=== PATIENT | female | born 1975 | race American Indian/Alaskan Native ===

== ENCOUNTER 2016-09-14 17:40 | Emergency (ER) | payer BC ==
[2016-09-14] MEDS ORDERED: MOTRIN PO ONE (21:43)
[2016-09-14 22:16] LABS: Hematocrit 40.4 % (30.3-42.9); Hemoglobin 13.2 gm/dl (10.1-14.3); Mean Corpuscular HGB Conc 33 % (30-34); Mean Corpuscular Hemoglobin 29 pg (28-32); Mean Corpuscular Volume 89 fl (79-97); Platelet Count 264 K/mm3 (140-440); Red Blood Count 4.53 M/mm3 (3.65-5.03); Red Cell Distribution Width 14.2 % (13.2-15.2); White Blood Count 10.8 K/mm3 (4.5-11.0)
--- NOTE | 2016-09-14 22:19 | Emergency Department Report ---
ED Extremity Problem HPI - General Chief complaint: Extremity Injury, Lower Stated complaint: MUSCLE CRAMP Time Seen by Provider: 09/14/16 21:20 Source: patient Mode of arrival: Ambulatory Limitations: No Limitations - History of Present Illness Initial comments: 41-year-old female past medical history smoker presents with complaint of cramps to right calf for approximately 4-5 days. Patient denies any trauma, denies any new exercises denies any rash or lesions on leg. Patient states she feels it in mid calf region, persistent, crampy in nature. Denies any recent travel not on any control history of DVT or PE MD Complaint: extremity pain Onset/Timin -: days(s) Location: right History of Same: No Radiation: proximal Severity scale (0 -10): 8 Quality: aching Consistency: constant - Related Data Home Medications Medication Instructions Recorded Confirmed Last Taken Mirtazapine 30 mg PO DAILY 09/14/16 09/14/16 Unknown Previous Rx's Medication Instructions Recorded Last Taken Type Cyclobenzaprine [Flexeril] 10 mg PO TID PRN #15 tablet 09/14/16 Unknown Rx Naproxen [Naprosyn TAB] 500 mg PO BID PRN #25 tablet 09/14/16 Unknown Rx Allergies Allergy/AdvReac Type Severity Reaction Status Date / Time latex Allergy Rash Verified 09/01/13 13:41 aspirin AdvReac Nausea Verified 09/01/13 13:41 ED Review of Systems ROS: Stated complaint: MUSCLE CRAMP Other details as noted in HPI Constitutional: denies: chills, fever Eyes: denies: eye pain, eye discharge, vision change ENT: denies: ear pain, throat pain Respiratory: denies: cough, shortness of breath, wheezing Cardiovascular: denies: chest pain, palpitations Endocrine: no symptoms reported Gastrointestinal: denies: abdominal pain, nausea, diarrhea Genitourinary: denies: urgency, dysuria, discharge Musculoskeletal: as per HPI. denies: back pain, joint swelling, arthralgia Skin: denies: rash, lesions Neurological: denies: headache, weakness, paresthesias Psychiatric: denies: anxiety, depression Hematological/Lymphatic: denies: easy bleeding, easy bruising ED Past Medical Hx - Past Medical History Previous Medical History?: Yes Hx Headaches / Migraines: Yes Additional medical history: anxiety - Surgical History Additional Surgical History: hysterectomy - Social History Smoking Status: Current Every Day Smoker Substance Use Type: Alcohol, Non Opiate Pain - Medications Home Medications: Home Medications Medication Instructions Recorded Confirmed Last Taken Type Cyclobenzaprine [Flexeril] 10 mg PO TID PRN #15 tablet 09/14/16 Unknown Rx Mirtazapine 30 mg PO DAILY 09/14/16 09/14/16 Unknown History Naproxen [Naprosyn TAB] 500 mg PO BID PRN #25 tablet 09/14/16 Unknown Rx ED Physical Exam - General Limitations: No Limitations General appearance: alert, in no apparent distress - Head Head exam: Present: atraumatic, normocephalic - Eye Eye exam: Present: normal appearance, PERRL, EOMI - ENT ENT exam: Present: mucous membranes moist - Neck Neck exam: Present: normal inspection - Respiratory Respiratory exam: Present: normal lung sounds bilaterally. Absent: respiratory distress - Cardiovascular Cardiovascular Exam: Present: regular rate, normal rhythm. Absent: systolic murmur, diastolic murmur, rubs, gallop - GI/Abdominal GI/Abdominal exam: Present: soft, normal bowel sounds - Extremities Exam Extremities exam: Present: normal inspection, tenderness (mild reproducible tenderness right mid calf region, no visible sweling) - Expanded Lower Extremity Exam Right Hip exam: Present: normal inspection, full ROM Upper Leg exam: Present: normal inspection, full ROM Knee exam: Present: normal inspection, full ROM Lower Leg exam: Present: normal inspection, full ROM, tenderness (minor mid calf tenderness, no swelling, no erythema, achilles tendon intact, limb warm, distal pulses dorsalis pedis and psoteriro tibial pulses intact on palpation, strong.) Ankle exam: Present: normal inspection, full ROM Foot/Toe exam: Present: normal inspection, full ROM Neuro vascular tendon exam: Present: no vascular compromise Gait: Positive: observed and normal - Back Exam Back exam: Present: normal inspection - Neurological Exam Neurological exam: Present: alert, oriented X3 - Psychiatric Psychiatric exam: Present: normal affect, normal mood - Skin Skin exam: Present: warm, dry, intact, normal color. Absent: rash ED Course Vital Signs 09/14/16 09/14/16 18:04 20:30 Temperature 98.8 F 98.4 F Pulse Rate 73 62 Respiratory 20 24 Rate Blood Pressure 141/89 Blood Pressure 166/77 [Right] O2 Sat by Pulse 100 100 Oximetry ED Medical Decision Making - Lab Data Result diagrams: 09/14/16 21:59 09/14/16 21:59 - Medical Decision Making A/P: Right lower extremity muscle cramps 1-utilized Wells criteria to determine patient's risk for DVT as patient has pain in right calf region, well score 1 so I proceeded to order a d-dimer which has resulted as a negative value, pt pain likely musculoskeletal as there are no signs/history endorsed of trauma and no signs of infection. ROM all joints RLE , distal sensation and pulses intact 2- naproxen and flexeril PRN for pain 3-follow-up with primary care doctor 4-patient technically has ruled out for DVT as d-dimer is negative, however, I will send her for outpatient duplex in the morning will give her referral form to be as thorough as possible Critical care attestation.: If time is entered above; I have spent that time in minutes in the direct care of this critically ill patient, excluding procedure time. ED Disposition Clinical Impression: Right calf pain Disposition: DISCHARGED TO HOME OR SELFCARE Is pt being admited?: No Does the pt Need Aspirin: No Condition: Stable Instructions: Musculoskeletal Pain (ED) Prescriptions: Cyclobenzaprine [Flexeril] 10 mg PO TID PRN #15 tablet PRN Reason: Muscle Spasm Naproxen [Naprosyn TAB] 500 mg PO BID PRN #25 tablet PRN Reason: Pain Referrals: MISAEL CEDEÑO MD [Staff Physician] - 3-5 Days Time of Disposition: 22:38
[2016-09-14 22:28] LABS: Anion Gap 18 mmol/L; BUN/Creatinine Ratio 13.75; Blood Urea Nitrogen 11 mg/dL (7-17); Calcium 8.8 mg/dL (8.4-10.2); Carbon Dioxide 24 mmol/L (22-30); Chloride 99.4 mmol/L (98-107); Glucose 99 mg/dL (65-100); Magnesium 1.9 mg/dL (1.7-2.3); Potassium 3.8 mmol/L (3.6-5.0); Sodium 138 mmol/L (137-145)
[2016-09-14 22:53] LABS: Basophils % (Manual) 0 % (0.0-1.8); Blastocytes % (Manual) 0 %; Diff Status Complete; Platelet Estimate Consistent w Auto; RBC Morphology Normal
[2016-09-14 22:55] VITALS: BP 146/84
== END 2016-09-14 22:53 | disposition home or self-care (01) ==
LOC: ED 17:40
DX: M79.1 Myalgia (principal); G43.909 Migraine, unspecified, not intractable, without status migrainosus; F41.9 Anxiety disorder, unspecified; F17.200 Nicotine dependence, unspecified, uncomplicated; Z90.710 Acquired absence of both cervix and uterus; Z88.6 Allergy status to analgesic agent; Z91.040 Latex allergy status
CPT/HCPCS: 36415; 80048; 83735; 85007; 85025; 85379; 99283

== ENCOUNTER 2017-02-16 18:02 | Emergency (ER) | payer BC ==
--- NOTE | 2017-02-16 18:47 | Emergency Department Report ---
Entered by NADIYA MATT, acting as scribe for REEMA BARNARD NP. Chief Complaint: Headache Stated Complaint: HEADACHE Time Seen by Provider: 02/16/17 18:06 - HPI History of Present Illness: 41 y/o female with Hx of migraines, presents with 6/10 BERGMAN that started 3 days ago and worsened while driving to work earlier today. Pt reports that BERGMAN is consistent with previous episodes that she had been seen here for. Pt denies any recent fevers. Pt endorses tobacco use and occasional ETOH use. - ROS Review of Systems: +BERGMAN -fever - Exam Vital Signs: Vital Signs 02/16/17 18:08 Temperature 99.1 F Pulse Rate 89 Respiratory 20 Rate Blood Pressure 176/100 O2 Sat by Pulse 100 Oximetry Physical Exam: Neuro: no focal deficits, no slurred speech, no facial droop. CNII-IV intact MSE screening note: Focused history and physical exam performed. Due to findings the following was ordered: due to pt's first bp reading, basic labs ordered. ED Disposition for MSE Condition: Stable Referrals: PRIMARY CARE,MD [Primary Care Provider] - 3-5 Days This documentation as recorded by the scribe,NADIYA MATT,accurately reflects the service I personally performed and the decisions made by ,REEMA BARNARD , ROD PULLER.
[2017-02-16 19:10] LABS: Basophils % (Auto) 1.3 % (0.0-1.8); Eosinophils % (Auto) 0.9 % (0.0-4.3); Hematocrit 43.6 % (30.3-42.9); Hemoglobin 14.5 gm/dl (10.1-14.3); Mean Corpuscular HGB Conc 33 % (30-34); Mean Corpuscular Hemoglobin 30 pg (28-32); Mean Corpuscular Volume 90 fl (79-97); Platelet Count 279 K/mm3 (140-440); Red Blood Count 4.86 M/mm3 (3.65-5.03); Red Cell Distribution Width 14.2 % (13.2-15.2); White Blood Count 6.8 K/mm3 (4.5-11.0)
[2017-02-16] MEDS ORDERED: REGLAN IV ONE (19:13)
[2017-02-16] MEDS ORDERED: NACL 0.9% 1000 ML 1,000 ML IV ONE (19:13)
[2017-02-16] MEDS ORDERED: BENADRYL IV ONE (19:13)
[2017-02-16 19:15] LABS: Anion Gap 17 mmol/L; BUN/Creatinine Ratio 8.75; Blood Urea Nitrogen 7 mg/dL (7-17); Calcium 9.4 mg/dL (8.4-10.2); Carbon Dioxide 27 mmol/L (22-30); Glucose 99 mg/dL (65-100); Potassium 4.3 mmol/L (3.6-5.0); Sodium 139 mmol/L (137-145)
[2017-02-16] MEDS ORDERED: APRESOLINE IV ONE (19:22)
--- NOTE | 2017-02-16 19:34 | Emergency Department Report ---
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 Patient stated while driving to work she developed a sharp throbbing headache that is located diffuse with level of 6/ 10. Patient denies worst headache. Patient denies blurry vision, visual changes , chest pain, nausea, vomiting, shortness of breathe, fever, chills, eye pain, numbness or tingling. Patient stated headache is similar to her migraine headaches. Patient stated headache is relieved with darkness and worsened with bright lights. Patient denies head trauma. Denies LOC. Patient stated allergies to aspirin and latex. Timing/Duration: episodic Quality: mild Head Injury Location: other (diffuse) Recent Head Trauma: frequent headaches, chronic headaches Associated Symptoms: denies symptoms. denies: confusion, fatigue, facial pain, fever/chills, flushing, loss of consciousness, nausea/vomiting, nasal congestion , nasal drainage, numbness in legs/feet, rash, seizures, sinus infection, stiff neck, vision changes, weakness Allergies/Adverse Reactions: Allergies latex Allergy (Verified 09/01/13 13:41) Rash aspirin Adverse Reaction (Verified 09/01/13 13:41) Nausea Home Medications: Ambulatory Orders Cyclobenzaprine [Flexeril] 10 mg PO TID PRN #15 tablet 09/14/16 Mirtazapine 30 mg PO DAILY 09/14/16 Naproxen [Naprosyn TAB] 500 mg PO BID PRN #25 tablet 09/14/16 Butalb/Acetamin/Caff 50-325-40 [Fioricet] 1 tab PO Q6HR PRN #30 tab 02/16/17 ED Review of Systems ROS: Stated complaint: HEADACHE Other details as noted in HPI Constitutional: denies: chills, fever Eyes: denies: eye pain, eye discharge, vision change ENT: denies: ear pain, throat pain Respiratory: denies: cough, shortness of breath, wheezing Cardiovascular: denies: chest pain, palpitations Endocrine: no symptoms reported Gastrointestinal: denies: abdominal pain, nausea, diarrhea Genitourinary: denies: urgency, dysuria, discharge Musculoskeletal: denies: back pain, joint swelling, arthralgia Skin: denies: rash, lesions Neurological: headache. denies: weakness, paresthesias Psychiatric: denies: anxiety, depression Hematological/Lymphatic: denies: easy bleeding, easy bruising ED Past Medical Hx - Past Medical History Previous Medical History?: Yes Hx Headaches / Migraines: Yes Additional medical history: anxiety - Surgical History Past Surgical History?: Yes Additional Surgical History: hysterectomy - Social History Smoking Status: Current Every Day Smoker Substance Use Type: Alcohol - Medications Home Medications: Home Medications Medication Instructions Recorded Confirmed Last Taken Type Cyclobenzaprine [Flexeril] 10 mg PO TID PRN #15 tablet 09/14/16 Unknown Rx Mirtazapine 30 mg PO DAILY 09/14/16 09/14/16 Unknown History Naproxen [Naprosyn TAB] 500 mg PO BID PRN #25 tablet 09/14/16 Unknown Rx Butalb/Acetamin/Caff 50-325-40 1 tab PO Q6HR PRN #30 tab 02/16/17 Unknown Rx [Fioricet] ED Physical Exam - General Limitations: No Limitations General appearance: alert, in no apparent distress - Head Head exam: Present: atraumatic, normocephalic, normal inspection - Eye Eye exam: Present: normal appearance, PERRL, EOMI. Absent: scleral icterus, conjunctival injection, nystagmus, periorbital swelling, periorbital tenderness Pupils: Present: normal accommodation - Expanded Eye Exam Expanded Eyelids: Normal Inspection: Left Pupils: Regular, Round: Bilateral, Reactive: Bilateral Sclera/Conjunctival: Normal Inspection: Bilateral Visual acuity (R) = 20/: 20 Visual acuity (L) = 20/: 20 With correction: No IOP measured with: Tonopen (15) - ENT ENT exam: Present: normal exam, normal orophraynx, mucous membranes moist, TM's normal bilaterally, normal external ear exam - Expanded ENT Exam Expanded Mouth exam: Present: normal external inspection, tongue normal. Absent: drooling, trismus, muffled voice, tongue elevation, laceration Teeth exam: Present: normal inspection Throat exam: Positive: normal inspection. Negative: tonsillar erythema, tonsillomegaly, tonsillar exudate, R peritonsillar mass, L peritonsillar mass - Neck Neck exam: Present: normal inspection, full ROM. Absent: tenderness, meningismus, lymphadenopathy, thyromegaly - Respiratory Respiratory exam: Present: normal lung sounds bilaterally. Absent: respiratory distress, wheezes, rales, rhonchi, stridor, chest wall tenderness, accessory muscle use, decreased breath sounds, prolonged expiratory - Cardiovascular Cardiovascular Exam: Present: regular rate, normal rhythm, normal heart sounds. Absent: bradycardia, tachycardia, irregular rhythm, systolic murmur, diastolic murmur, rubs, gallop - GI/Abdominal GI/Abdominal exam: Present: soft, normal bowel sounds. Absent: distended, tenderness, guarding, rebound, rigid, diminished bowel sounds - Rectal Rectal exam: Present: deferred - Extremities Exam Extremities exam: Present: normal inspection, full ROM, normal capillary refill. Absent: tenderness, pedal edema, joint swelling, calf tenderness - Back Exam Back exam: Present: normal inspection, full ROM. Absent: tenderness, CVA tenderness (R), CVA tenderness (L), muscle spasm, paraspinal tenderness, vertebral tenderness, rash noted - Neurological Exam Neurological exam: Present: alert, oriented X3, CN II-XII intact, normal gait, reflexes normal - Expanded Neurological Exam Expanded Patient oriented to: Present: person, place, time Speech: Present: fluid speech (normal speech) Cranial nerves: EOM's Intact: Normal, Gag Reflex: Normal, Tongue Deviation: Normal, Nystagmus: Normal, Facial Sensation: Normal, Facial Palsy with Forehead Movement: Normal, Facial Palsy without Forehead Movement: Normal Cerebellar function: Finger to Nose: Normal, Heel to [place]: Normal, Romberg: Normal Upper motor neuron: Jose Neglect: Normal, Pronator Drift: Normal, Babinski Sign : Normal, Sensory Extinction: Normal Sensory exam: Upper Extremity Light Touch: Normal, Upper Extremity Pin Prick: Normal, Upper Extremity Temperature: Normal, UE 2 Point Discrimination: Normal, Lower Extremity Light Touch: Normal, Lower Extremity Pin Prick: Normal, Lower Extremity Temperature: Normal, LE 2 Point Discrimination: Normal Motor strength exam: RUE: 5, LUE: 5, RLE: 5, LLE: 5 DTR: bicep (R): 2+, bicep (L): 2+, tricep (R): 2+, tricep (L): 2+, knee (R): 2+ , knee (L): 2+, ankle (R): 2+, ankle (L): 2+ Best Eye Response ([place]): (4) open spontaneously Best Motor Response ([place]): (6) obeys commands Best Verbal Response (Derek): (5) oriented [place] Total: 15 - Psychiatric Psychiatric exam: Present: normal affect, normal mood - Skin Skin exam: Present: warm, dry, intact, normal color. Absent: rash ED Course Vital Signs 02/16/17 02/16/17 02/16/17 18:08 19:40 21:23 Temperature 99.1 F 98.7 F Pulse Rate 89 73 Respiratory 20 18 Rate Blood Pressure 176/100 Blood Pressure 152/98 128/82 [Right] O2 Sat by Pulse 100 100 Oximetry - Reevaluation(s) Reevaluation #1: 02/16/17 19:39 Patient is able speak full sentences with no signs of distress. Reevaluation #2: 02/16/17 20:18 Posttreament eval: patient stated headache has subsided. Denies any hadache. Patient is laying in bed with no signs of distress noted. Friend (Jimenez) is at bedside and stated will drive the patient home. ED Medical Decision Making - Lab Data Result diagrams: 02/16/17 18:41 02/16/17 18:41 - Medical Decision Making Ed course: This is a 41-year-old female that presents to the ED c/o of headache 1- patient was examined by myself. Repeat b/p 152/96. Hydralazine was on hold. Patient was notified to follow-up with her primary care doctor in 24 hours for elevated blood pressure or if chest pain, severe headache, blurry vision, visual changes, chest pain, shortness of breath, nausea or vomiting return to the ER as soon as possible. 2- patient was treated in the ED with Reglan and Benadryl for headache and 1000 normal saline IV. Patient stated headache has subsided after medical treatment ED. Patient was notified not to operate any machinery after discharged to sedation/drowsiness of Benadryl and patient stated her friend Jimenez will go the patient home. 3- Patient received Fioricet at discharge. 4- At time time of discharge, the patient does not seem toxic or ill in appearance. No acute signs of distress noted. Patient agrees to discharge treatment plan of care. No further questions noted by the patient. Critical care attestation.: If time is entered above; I have spent that time in minutes in the direct care of this critically ill patient, excluding procedure time. ED Disposition Clinical Impression: Headache Qualifiers: Headache type: unspecified Headache chronicity pattern: unspecified pattern Intractability: not intractable Qualified Code(s): R51 - Headache Disposition: DC- TO HOME OR SELFCARE Is pt being admited?: No Does the pt Need Aspirin: No Condition: Stable Instructions: Butalbital/Acetaminophen/Caffeine (By mouth), Acute Headache (ED) Additional Instructions: follow-up with your primary care doctor in 24 hours for elevated blood pressure or if chest pain, severe headache, blurry vision, visual changes, chest pain, shortness of breath, nausea or vomiting return to the ER as soon as possible. Take Fioricet as prescribed for headache and needed. Prescriptions: Butalb/Acetamin/Caff 50-325-40 [Fioricet] 1 tab PO Q6HR PRN #30 tab PRN Reason: Headache Referrals: [facility] [Outside] - 3-[address] [facility] [Outside] - 3-5 Days ZEINA MAYEN MD [Staff Physician] - 24 Hours PRIMARY CAREMD [Primary Care Provider] - 24 Hours Forms: Work/School Release Form(ED)
[2017-02-16 21:24] VITALS: BP 128/82
== END 2017-02-16 21:23 | disposition home or self-care (01) ==
LOC: ED 18:02
DX: R51 Headache (principal); F41.9 Anxiety disorder, unspecified; F17.200 Nicotine dependence, unspecified, uncomplicated; Z91.040 Latex allergy status; Z88.6 Allergy status to analgesic agent
CPT/HCPCS: 36415; 80048; 85025; 96361; 96374; 96375; 99283; J0360; J1200; J2765; J7030

== ENCOUNTER 2018-09-25 19:26 | Emergency (ER) | payer SELFPAY ==
[2018-09-25] MEDS ORDERED: ASPIRIN PO ONE (19:40)
[2018-09-25 20:09] LABS: Basophils % (Auto) 0.6 % (0.0-1.8); Eosinophils # (Auto) 0.1 K/mm3 (0.0-0.4); Eosinophils % (Auto) 1.4 % (0.0-4.3); Hematocrit 41.9 % (30.3-42.9); Lymphocytes # (Auto) 3.8 K/mm3 (1.2-5.4); Lymphocytes % (Auto) 50.5 % (13.4-35.0); Mean Corpuscular HGB Conc 33 % (30-34); Mean Corpuscular Volume 90 fl (79-97); Monocytes # (Auto) 0.6 K/mm3 (0.0-0.8); Monocytes % (Auto) 8.3 % (0.0-7.3); Platelet Count 296 K/mm3 (140-440); Red Blood Count 4.68 M/mm3 (3.65-5.03); Red Cell Distribution Width 14.4 % (13.2-15.2)
[2018-09-25 20:14] LABS: BUN/Creatinine Ratio 16; Blood Urea Nitrogen 13 mg/dL (7-17); Calcium 8.7 mg/dL (8.4-10.2); Hemolysis Index 7
--- NOTE | 2018-09-25 20:42 | XRay Report ---
PROCEDURE: XR CHEST 1V AP TECHNIQUE: Chest AP HISTORY: Chest Pain COMPARISONS: FINDINGS: Cardiac and mediastinal contours are unremarkable. No focal pulmonary infiltrate identified. No pleur al fluid collections seen. Pulmonary vasculature is unremarkable IMPRESSION: Negative single view chest. This document is electronically signed by Giancarlo Miguel MD., September 25 2018 08:39:58 PM ET
[2018-09-25] MEDS ORDERED: MORPHINE IV ONE (22:16)
[2018-09-25] MEDS ORDERED: ZOFRAN IV ONE (22:17)
--- NOTE | 2018-09-25 22:33 | Emergency Department Report ---
HPI - General Chief Complaint: Chest Pain Time Seen by Provider: 09/25/18 20:26 - HPI HPI: This is a 43-year-old female pt who arrived via EMS, c/o chest pain, mid chest, 4 out of 10, sharp, without radiation while watching TV around 10-11 am this morning, EMS gave 1 tab Nitroglycerine. ED Past Medical Hx - Past Medical History Previous Medical History?: Yes Hx Hypertension: Yes Hx Headaches / Migraines: Yes Additional medical history: anxiety - Surgical History Past Surgical History?: Yes Additional Surgical History: hysterectomy, lymphadenectomy left ear - Social History Smoking Status: Current Every Day Smoker Substance Use Type: Alcohol - Medications Home Medications: Home Medications Medication Instructions Recorded Confirmed Last Taken Type Losartan [Cozaar] 25 mg PO QDAY 09/25/18 09/25/18 Unknown History Cyclobenzaprine [Flexeril] 10 mg PO TID PRN #14 tablet 09/26/18 Unknown Rx ED Review of Systems ROS: Stated complaint: CP Other details as noted in HPI Comment: All other systems reviewed and negative Constitutional: denies: see HPI ENT: denies: ear pain Respiratory: denies: cough Cardiovascular: chest pain. denies: palpitations, dyspnea on exertion, orthopnea Physical Exam - Physical Exam Vital Signs: Vital Signs 09/25/18 09/25/18 09/25/18 19:35 19:37 19:42 Temperature 98.2 F Pulse Rate 73 76 Respiratory 11 L 18 18 Rate Blood Pressure 132/94 132/94 Blood Pressure 132/94 [Right] O2 Sat by Pulse 99 99 Oximetry 09/25/18 09/25/18 20:00 21:00 Temperature Pulse Rate 77 77 Respiratory 18 20 Rate Blood Pressure 125/81 102/63 Blood Pressure [Right] O2 Sat by Pulse Oximetry Physical Exam: - General Limitations: No Limitations General appearance: alert, in no apparent distress - Head Head exam: Present: atraumatic, normocephalic - Eye Eye exam: Present: normal appearance - ENT ENT exam: Present: mucous membranes moist - Neck Neck exam: Present: normal inspection - Respiratory Respiratory exam: Present: normal lung sounds bilaterally. Absent: respiratory distress - Cardiovascular Cardiovascular Exam: Present: regular rate, normal rhythm. Pain is reproducible on palpation. Absent: systolic murmur, diastolic murmur, rubs, gallop - GI/Abdominal GI/Abdominal exam: Present: soft, normal bowel sounds - Extremities Exam Extremities exam: Present: normal inspection - Back Exam Back exam: Present: normal inspection - Neurological Exam Neurological exam: Present: alert, oriented X3 - Psychiatric Psychiatric exam: Present: normal affect, normal mood - Skin Skin exam: Present: warm, dry, intact, normal color. Absent: rash ED Course Vital Signs 09/25/18 09/25/18 09/25/18 19:35 19:37 19:42 Temperature 98.2 F Pulse Rate 73 76 Respiratory 11 L 18 18 Rate Blood Pressure 132/94 132/94 Blood Pressure 132/94 [Right] O2 Sat by Pulse 99 99 Oximetry 09/25/18 09/25/18 20:00 21:00 Temperature Pulse Rate 77 77 Respiratory 18 20 Rate Blood Pressure 125/81 102/63 Blood Pressure [Right] O2 Sat by Pulse Oximetry ED Medical Decision Making - Lab Data Result diagrams: 09/25/18 19:48 09/25/18 19:48 Critical care attestation.: If time is entered above; I have spent that time in minutes in the direct care of this critically ill patient, excluding procedure time. ED Disposition Clinical Impression: Chest pain Qualifiers: Chest pain type: unspecified Qualified Code(s): R07.9 - Chest pain, unspecified Disposition: DC-01 TO HOME OR SELFCARE Is pt being admited?: No Does the pt Need Aspirin: No Condition: Stable Instructions: Chest Pain (ED) Prescriptions: Cyclobenzaprine [Flexeril] 10 mg PO TID PRN #14 tablet PRN Reason: Muscle Spasm Referrals: PRIMARY CARE, [Primary Care Provider] - 3-5 Days
[2018-09-25] MEDS ORDERED: NORCO 5/325 PO ONE (23:03)
[2018-09-25] MEDS ORDERED: BENADRYL IV ONE (23:46)
[2018-09-25] MEDS ORDERED: BENADRYL ONE (23:49)
[2018-09-26 00:02] VITALS: BP 124/60
== END 2018-09-26 00:49 | disposition home or self-care (01) ==
LOC: ED 19:26
DX: R07.9 Chest pain, unspecified (principal); I10 Essential (primary) hypertension; I25.2 Old myocardial infarction; F17.200 Nicotine dependence, unspecified, uncomplicated; Z90.710 Acquired absence of both cervix and uterus; Z88.6 Allergy status to analgesic agent; Z91.040 Latex allergy status
CPT/HCPCS: 36415; 71045; 80048; 84484; 85025; 85379; 93005; 93010; 96374; 96375; 99285; J1200; J2270; J2405

== ENCOUNTER 2019-02-09 16:05 | Emergency (ER) | payer SELFPAY ==
--- NOTE | 2019-02-09 16:35 | Event Note ---
ED Screening Note Date of service: 02/09/19 Time: 16:33 ED Screening Note: 43 y/o female comes in for weakness and upper back pain. History HTN on HCTZ and K+. This initial assessment/diagnostic orders/clinical plan/treatment(s) is/are subject to change based on patients health status, clinical progression and re- assessment by fellow clinical providers in the ED. Further treatment and workup at subsequent clinical providers discretion. Patient/guardian urged not to elope from the ED as their condition may be serious if not clinically assessed and managed. Initial orders include:
[2019-02-09 16:36] VITALS: BP 157/94
[2019-02-09 17:58] LABS: Basophils # (Auto) 0.1 K/mm3 (0.0-0.1); Basophils % (Auto) 0.9 % (0.0-1.8); Eosinophils # (Auto) 0.1 K/mm3 (0.0-0.4); Eosinophils % (Auto) 0.9 % (0.0-4.3); Hematocrit 44.9 % (30.3-42.9); Lymphocytes # (Auto) 4.2 K/mm3 (1.2-5.4); Mean Corpuscular HGB Conc 33 % (30-34); Mean Corpuscular Volume 91 fl (79-97); Monocytes # (Auto) 0.7 K/mm3 (0.0-0.8); Platelet Count 297 K/mm3 (140-440); Red Blood Count 4.95 M/mm3 (3.65-5.03); Red Cell Distribution Width 14.3 % (13.2-15.2)
[2019-02-09 18:05] LABS: Bilirubin,Urine NEG (Negative); Blood,Urine SM (Negative); Color,Urine Straw (Yellow); Hyaline Casts,Urine 1 /LPF; Mucus,Urine FEW /HPF; Protein,Urine <15 mg/dL mg/dL (Negative); Urobilinogen,Urine < 2.0 mg/dL (<2.0); WBC,Urine < 1.0 /HPF (0.0-6.0)
[2019-02-09 18:16] LABS: Alanine Aminotransferase 16 units/L (7-56); Albumin 4.6 g/dL (3.9-5); BUN/Creatinine Ratio 13; Blood Urea Nitrogen 10 mg/dL (7-17); Calcium 9.3 mg/dL (8.4-10.2); Hemolysis Index 8
[2019-02-09 18:55] LABS: HCG Qualitative,Urine Negative (Negative)
[2019-02-09] MEDS ORDERED: TORADOL IM ONE (19:51)
[2019-02-09] MEDS ORDERED: FLEXERIL PO ONE (19:51)
--- NOTE | 2019-02-09 19:53 | Emergency Department Report ---
ED General Adult HPI - General Chief complaint: Headache Stated complaint: MIDDLE NECK PAIN/HEADACHE Time Seen by Provider: 02/09/19 18:35 Source: patient Mode of arrival: Ambulatory Limitations: No Limitations - History of Present Illness Initial comments: This is a 43-year-old female nontoxic, well nourished in appearance, no acute signs of distress presents to the ED with c/o of acute on chronic inertmittent headache. Patient also stated has cervical paraspinal aching pain and generalized weakness. Patient describes headache as diffuse with level of 3 out of 10. Patient denies thunderclap headache. Patient denies any radiation of pain. Patient denies any head trauma. Patient denies any visual changes. Patient denies worse headache. Patient stated that darkness makes headache better and bright lights make the headache worse. Patient denies any numbness, tingling, fever, chills, nausea, vomiting, chest pain, shortness of breath, stif f neck. Patient denies facial drooping or one sided weakness. Patient denies any radiation of pain. Patient stated allergies to aspirin and Lasix. -: days(s) Location: head, neck Radiation: non-radiation Severity scale (0 -10): 3 Quality: aching Consistency: constant Improves with: none Worsens with: none Associated Symptoms: denies other symptoms. denies: confusion, chest pain, cough, diaphoresis, headaches, loss of appetite, malaise, nausea/vomiting, rash, seizure, shortness of breath, syncope, weakness - Related Data Home Medications Medication Instructions Recorded Confirmed Last Taken Losartan [Cozaar] 25 mg PO QDAY 09/25/18 09/25/18 Unknown Previous Rx's Medication Instructions Recorded Last Taken Type Cyclobenzaprine [Flexeril] 10 mg PO TID PRN #14 tablet 09/26/18 Unknown Rx Butalb/Acetaminophen/Caffeine 1 cap PO Q6HR PRN #12 cap 02/09/19 Unknown Rx [Fioricet 50-300-40 mg CAP] Cyclobenzaprine [Flexeril] 10 mg PO QHS PRN #10 tablet 02/09/19 Unknown Rx Allergies Allergy/AdvReac Type Severity Reaction Status Date / Time latex Allergy Rash Verified 09/01/13 13:41 aspirin AdvReac Nausea Verified 09/01/13 13:41 ED Review of Systems ROS: Stated complaint: MIDDLE NECK PAIN/HEADACHE Other details as noted in HPI Constitutional: denies: chills, fever Eyes: denies: eye pain, eye discharge, vision change ENT: denies: ear pain, throat pain Respiratory: denies: cough, shortness of breath, wheezing Cardiovascular: denies: chest pain, palpitations Endocrine: no symptoms reported Gastrointestinal: denies: abdominal pain, nausea, diarrhea Genitourinary: denies: urgency, dysuria, discharge Musculoskeletal: denies: back pain, joint swelling, arthralgia Skin: denies: rash, lesions Neurological: headache, weakness. denies: paresthesias Psychiatric: denies: anxiety, depression Hematological/Lymphatic: denies: easy bleeding, easy bruising ED Past Medical Hx - Past Medical History Hx Hypertension: Yes Hx Headaches / Migraines: Yes Additional medical history: anxiety - Surgical History Additional Surgical History: hysterectomy, lymphadenectomy left ear - Social History Smoking Status: Current Every Day Smoker Substance Use Type: None - Medications Home Medications: Home Medications Medication Instructions Recorded Confirmed Last Taken Type Losartan [Cozaar] 25 mg PO QDAY 09/25/18 09/25/18 Unknown History Cyclobenzaprine [Flexeril] 10 mg PO TID PRN #14 tablet 09/26/18 Unknown Rx Butalb/Acetaminophen/Caffeine 1 cap PO Q6HR PRN #12 cap 02/09/19 Unknown Rx [Fioricet 50-300-40 mg CAP] Cyclobenzaprine [Flexeril] 10 mg PO QHS PRN #10 tablet 02/09/19 Unknown Rx ED Physical Exam - General Limitations: No Limitations General appearance: alert, in no apparent distress - Head Head exam: Present: atraumatic, normocephalic - Eye Eye exam: Present: normal appearance, PERRL, EOMI - Neck Neck exam: Present: normal inspection, full ROM. Absent: tenderness, meningismu s, lymphadenopathy - Respiratory Respiratory exam: Present: normal lung sounds bilaterally. Absent: respiratory distress, wheezes, rales, rhonchi, stridor, chest wall tenderness, accessory muscle use, decreased breath sounds, prolonged expiratory - Cardiovascular Cardiovascular Exam: Present: regular rate, normal rhythm, normal heart sounds. Absent: bradycardia, tachycardia, irregular rhythm, systolic murmur, diastolic murmur, rubs, gallop - Extremities Exam Extremities exam: Present: normal inspection, full ROM - Back Exam Back exam: Present: normal inspection, full ROM, paraspinal tenderness (bilateral cervical paraspinal). Absent: tenderness, CVA tenderness (R), CVA tenderness (L), muscle spasm, vertebral tenderness, rash noted - Neurological Exam Neurological exam: Present: alert, oriented X3, normal gait - Expanded Neurological Exam Expanded Patient oriented to: Present: person, place, time Cranial nerves: EOM's Intact: Normal, Facial Sensation: Normal Cerebellar function: Finger to Nose: Normal Upper motor neuron: Pronator Drift: Normal, Sensory Extinction: Normal Motor strength exam: RUE: 5, LUE: 5, RLE: 5, LLE: 5 Best Eye Response (Bledsoe): (4) open spontaneously Best Motor Response (Derek): (6) obeys commands Best Verbal Response (Bledsoe): (5) oriented Derek Total: 15 - Psychiatric Psychiatric exam: Present: normal affect, normal mood - Skin Skin exam: Present: warm, dry, intact, normal color. Absent: rash ED Course Vital Signs 02/09/19 16:33 Temperature 98.5 F Pulse Rate 80 Respiratory 16 Rate Blood Pressure 157/94 O2 Sat by Pulse 99 Oximetry - Reevaluation(s) Reevaluation #1: 02/09/19 19:52 Patient is speaking in full sentences with no signs of distress noted. ED Medical Decision Making - Lab Data Result diagrams: 02/09/19 17:24 02/09/19 17:24 - Medical Decision Making This is a 43-year-old female that presents with headache and cervical muscle strain. Patient is stable and was examined by me. Patient is neurologically stable. There is no stiff neck or neck pain. Vital signs are stable. Patient is afebrile. Patient received Toradol, and Flexeril which the patient stated that headache has subsided and resolved. Patient was instructed not to operate any machinery after discharged due to drowsiness of Flexeril. Patient stated that a family member will drive patient home. Patient is discharged with F ioricet and Flexeril. Patient was referred to Follow-up with a primary care/neurologist doctor in 3-5 days or if symptoms worsen and continue return to emergency room as soon as possible. At time of discharge, the patient does not seem toxic or ill in appearance. No acute signs of distress noted. Patient agrees to discharge treatment plan of care. No further questions noted by the patient. Critical care attestation.: If time is entered above; I have spent that time in minutes in the direct care of this critically ill patient, excluding procedure time. ED Disposition Clinical Impression: Headache Qualifiers: Headache type: unspecified Headache chronicity pattern: episodic headache Intractability: not intractable Qualified Code(s): R51 - Headache Cervical muscle strain Qualifiers: Encounter type: initial encounter Qualified Code(s): S16.1XXA - Strain of muscle, fascia and tendon at neck level, initial encounter Disposition: TO HOME OR SELFCARE Is pt being admited?: No Does the pt Need Aspirin: No Condition: Stable Instructions: Muscle Strain (ED), Acute Headache (ED), Butalbital/Aspirin/Caffeine/Codeine (By mouth), Cyclobenzaprine (By mouth) Additional Instructions: Follow-up with a primary care/neurologist doctor in 3-5 days or if symptoms worsen and continue return to emergency room as soon as possible. . Take Fioricet and Flexeril as prescribed. Do not operate heavy machinery while taking Fioricet and Flexeril due to sedation Prescriptions: Cyclobenzaprine [Flexeril] 10 mg PO QHS PRN #10 tablet PRN Reason: Muscle Spasm Butalb/Acetaminophen/Caffeine [Fioricet 50-300-40 mg CAP] 1 cap PO Q6HR PRN #12 cap PRN Reason: Pain , Severe (7-10) Referrals: [facility] MD FITO [Primary Care Provider] - 3-5 Days PRIMARY MD HYACINTH [Referring] - 3-5 Days JUVENAL BIRMINGHAM MD [Staff Physician] - 3-5 Days [facility] [Outside] - 3-5 Days [facility] [Outside] - 3-5 Days Forms: Work/School Release Form(ED)
--- NOTE | 2019-02-09 21:03 | Cat Scan Report ---
Nonenhanced CT scan of the brain: INDICATION: headache. TECHNIQUE: Routine CT head without contrast. Sagittal and coronal reformatted images were obtained. A ll CT scans at this location are performed using CT dose reduction for ALARA by means of automated ex posure control. COMPARISON: None. FINDINGS: BRAIN / INTRACRANIAL CONTENTS: No acute hemorrhage, mass effect, midline shift, hydrocephalus, or acu te, large territorial infarct. No chronic infarct or focal atrophy. Normal brain volume and ventricul ar/sulcal size for age. No significant white matter abnormality. Volume loss is seen in the cerebella r vermis. However, mammillary bodies are well preserved. CRANIOCERVICAL JUNCTION: No significant abnormality. ORBITS: No significant abnormality of visualized orbits. SINUSES / MASTOIDS: No significant abnormality of the visualized paranasal sinuses or mastoid air autumn ls. ADDITIONAL FINDINGS: None. IMPRESSION: I do not see an acute parenchymal lesion in the brain. Signer Name: Sheryl Tucker MD Signed: 02/09/2019 8:58 PM Workstation Name: [id number]
--- NOTE | 2019-02-09 21:10 | Cat Scan Report ---
Nonenhanced CT scan of the cervical spine: HISTORY: Neck pain FINDINGS: Initially, nonenhanced transverse images were obtained. Sagittal and coronal reformatted im ages were obtained. Mild straightening of cervical lordosis seen. Normal alignment of the vertebral bodies and articular facets seen. I do not see vertebral compression fracture. Prevertebral space is normal. In the transverse images, I do not see fracture involving the bony canal. Neuroforamina are normal. C2-C3 disc space is normal. C3-C4 disc space is normal. C4-C5 disc space is normal. C5-C6 disc space is normal. C6-C7 disc space is normal. C7-T1 disc space is normal. Reactive lymph nodes are seen in the internal jugular chain No focal lesion is seen in the suprahyoid and infrahyoid neck in these nonenhanced CT scan of the bra in. Impression: No focal lesion in the suprahyoid automated neck; reactive lymph nodes in the internal ju gular chain bilaterally All CT scans at this location are performed using CT dose reduction for ALARA by means of automated e xposure control. Signer Name: Sheryl Tucker MD Signed: 02/09/2019 9:06 PM Workstation Name: [id number]
== END 2019-02-09 21:45 | disposition home or self-care (01) ==
LOC: ED 16:05
DX: S16.1XXA Strain of muscle, fascia and tendon at neck level, initial encounter (principal); G43.909 Migraine, unspecified, not intractable, without status migrainosus; F41.9 Anxiety disorder, unspecified; F17.200 Nicotine dependence, unspecified, uncomplicated; Z91.040 Latex allergy status; Z88.6 Allergy status to analgesic agent; Z90.710 Acquired absence of both cervix and uterus; Z79.899 Other long term (current) drug therapy; X58.XXXA Exposure to other specified factors, initial encounter; Y93.89 Activity, other specified; Y92.89 Other specified places as the place of occurrence of the external cause; Y99.8 Other external cause status
CPT/HCPCS: 36415; 70450; 72125; 80053; 81001; 81025; 85025; 96372; 99284; J1885